=== PATIENT | male | born 2000 | race Caucasian/White ===

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

== ENCOUNTER → 2020-03-18 | Outpatient (CLI) | payer MEDICAID | END | disposition home or self-care (01) | LOC: RAD 11:10 | PROVIDERS: ATTEND Physician Assistant Medical | DX: N45.1 Epididymitis (principal); N50.819 Testicular pain, unspecified | CPT/HCPCS: 76870 ==